=== PATIENT | female | born 1980 | race Caucasian/White ===

== ENCOUNTER 2017-01-06 12:50 | Emergency (ER) | payer OTHER | END 2017-01-06 14:26 | disposition home or self-care (01) | LOC: ER1 12:50 | DX: L02.811 Cutaneous abscess of head [any part, except face] (principal); I10 Essential (primary) hypertension; F17.210 Nicotine dependence, cigarettes, uncomplicated; Z79.899 Other long term (current) drug therapy | CPT/HCPCS: 10060; 87070; 87077; 87186; 87205; 99283 ==